=== PATIENT | female | born 1950 | race Two or more races ===

== ENCOUNTER 2018-06-15 11:47 | Emergency (ER) | payer MEDICAID ==
[~2018-06-15] VITALS: Ht 160 cm; Wt 72.6 kg
[~2018-06-15 11:47] MED LIST: ATORVASTATIN CA20 MG ORAL; DULERA 100 MCG/13 GM INH; FLONASE ALLERG9.9 ML NS; LEVOTHYROXINE50 MCG ORAL; LISINOPRIL20 MG ORAL; METFORMIN HCL500 M1 ORAL; METOPROLOL SUCC50 MG ORAL
[2018-06-15 12:00] VITALS: BP 166/53
--- NOTE | 2018-06-15 13:12 | Emergency Room Report ---
History of Present Illness General Chief Complaint: Palpitations Source: Patient, Medical Record Present Illness HPI This patient c/o palpitations for two days. She feels her heart beat and points to her chest. Not necessarily fast but it feels "strong." No sob, no chest pain , no cough, no fever. No leg pain/swelling, no travel. No change in meds. Meds: hctz, atenolol, atorvastatin, metformin, lisinopril, synthroid Allergies: Coded Allergies: CEPHALEXIN (Verified Allergy, Intermediate, rash, 08/27/15) IBUPROFEN (Verified Allergy, Intermediate, edema and stomach upset, ) SULFAMETHOXAZOLE (Verified Allergy, Intermediate, rash , 08/27/15) PENICILLINS (Verified Allergy, Unknown, 08/26/15) SIMVASTATIN (Verified Allergy, Unknown, 08/26/15) TRAMADOL (Verified Allergy, Unknown, 08/26/15) ALBUTEROL (Verified Adverse Reaction, Severe, palpitations, 08/27/15) METOPROLOL (Verified Adverse Reaction, Severe, Palpitations, 08/27/15) MELOXICAM (Verified Adverse Reaction, Intermediate, facial edema, 08/27/15) TRIMETHOPRIM (Verified Adverse Reaction, Intermediate, palpitations, ) AMLODIPINE (Verified Adverse Reaction, Mild, swelling in ankles, 08/27/15) Nursing Documentation-PMH Past Medical History: No History, Except For Hx Cardiac Problems: Yes - Arrhythmia Hx Hypertension: Yes Hx Pacemaker: No Hx Asthma: Yes - Takes inhaler PRN Hx COPD: No Hx Diabetes: Yes - Type II Hx Cancer: No Hx Gastrointestinal Problems: Yes Hx Dialysis: No History Of Psychiatric Problem: No Hx Neurological Problems: No Hx Cerebrovascular Accident: No Hx Seizures: No Review of Systems Constitutional: Reports: no symptoms Eye: Reports: no symptoms ENT: Reports: no symptoms Respiratory: Reports: no symptoms Cardiovascular: Reports: palpitations Gastrointestinal: Reports: no symptoms Genitourinary: Reports: no symptoms Musculoskeletal: Reports: no symptoms Skin: Reports: no symptoms Psychiatric: Reports: no symptoms Neurological: Reports: no symptoms Endocrine: Reports: no symptoms Hematologic/Lymphatic: Reports: no symptoms Allergic: Reports: no symptoms All Other Systems: negative except mentioned in HPI Physical Exam Vital Signs Date Time Temp Pulse Resp B/P (MAP) Pulse Ox O2 Delivery O2 Flow Rate FiO2 06/15/18 11:57 98.6 63 16 132/59 96 Room Air 98.6 Sp02 EP Interpretation: reviewed, normal General Appearance: normal inspection, well appearing, no apparent distress, alert, GCS 15, non-toxic Head: normocephalic, atraumatic Eyes: bilateral eye normal inspection, bilateral eye PERRL, bilateral eye EOMI ENT: normal ENT inspection, hearing grossly normal, normal pharynx, no angioedema, normal voice, moist mucus membranes Neck: normal inspection, full range of motion, supple, no meningismus, no bony tend Respiratory: normal inspection, lungs clear, normal breath sounds, no rhonchi, no respiratory distress, no retraction, no accessory muscle use, no wheezing Cardiovascular #1: normal inspection, regular rate, rhythm, no edema Gastrointestinal: normal inspection, normal bowel sounds, non tender, soft, no mass, non-distended Musculoskeletal: gait/station normal, normal range of motion Neurologic: normal inspection, alert, oriented x3, responsive, motor strength/ tone normal Psychiatric: normal inspection, judgement/insight normal, memory normal Suicide Risk Assessment: Suicidal Ideation: No Had intent to initiate attempt: No Pt's plan for suicide attempt: No Has means to complete attempt: No Skin: normal inspection, normal color, no rash, warm/dry Medical Decision Making Diagnostic Impression: Primary Impression: Palpitations ER Course Pt. states she is having symptoms of palpitation now while on the monitor and she is very steady NSR 70. She does not drink coffee, only tea. No stimulants. Recommend observation only at home. Continue same meds. EKG Diagnostic Results EKG Time: 13:12 Rate: normal Rhythm: NSR ST Segments: no acute changes ASA given to the pt in ED: No Rhythm Strip Diag. Results Rhythm Strip Time: 13:12 EP Interpretation: yes Rate: 68 Rhythm: NSR Last Vital Signs Date Time Temp Pulse Resp B/P (MAP) Pulse Ox O2 Delivery O2 Flow Rate FiO2 06/15/18 12:00 97.9 62 15 166/53 98 Room Air 97.9 Condition: Stable Referrals: [facility],REFERR[facility] (PCP) Patient Instructions: Palpitations Neel New M.D. Jun 15, 2018 13:12
[2018-06-15 13:30] LABS: BASOPHILS % (AUTO) 1.7 % (0.0-2.0); EOSINOPHILS % (AUTO) 2.2 % (0.0-3.0); HEMATOCRIT 36.2 % (37.0-47.0); HEMOGLOBIN 12.1 G/DL (12.0-16.0); LYMPHOCYTES % (AUTO) 24.9 % (20.0-45.0); MEAN CORPUSCULAR VOLUME 85 FL (80-99); MONOCYTES % (AUTO) 5.7 % (1.0-10.0); NEUTROPHILS % (AUTO) 65.5 % (45.0-75.0); PLATELET COUNT 429 K/UL (150-450); RED BLOOD COUNT 4.26 M/UL (4.20-5.40); RED CELL DISTRIBUTION WIDTH 12.6 % (11.6-14.8); WHITE BLOOD COUNT 11.2 K/UL (4.8-10.8)
[2018-06-15 13:33] LABS: APPEARANCE,URINE CLEAR; BILIRUBIN, URINE NEGATIVE (NEGATIVE); COLOR,URINE PALE YELLOW; GLUCOSE, URINE (UA) NEGATIVE (NEGATIVE); KETONES,URINE NEGATIVE (NEGATIVE); LEUKOCYTE ESTERASE ,URINE 1+ (NEGATIVE); NITRITE,URINE NEGATIVE (NEGATIVE); PH,URINE 6.5 (4.5-8.0); PROTEIN,URINE NEGATIVE (NEGATIVE); UROBILINOGEN,URINE NORMAL MG/DL (0.0-1.0)
[2018-06-15 13:47] LABS: ANION GAP 10 mmol/L (5-15); BLOOD UREA NITROGEN 11 mg/dL (7-18); CALCIUM 9.2 MG/DL (8.5-10.1); CARBON DIOXIDE 26 MMOL/L (21-32); CHLORIDE 100 MMOL/L (98-107); CREATININE 0.9 MG/DL (0.55-1.30); POTASSIUM 5.1 MMOL/L (3.5-5.1); SODIUM 136 MMOL/L (136-145)
[2018-06-15 13:50] LABS: ALANINE AMINOTRANSFERASE 28 U/L (12-78); ALBUMIN 3.3 G/DL (3.4-5.0); ALBUMIN/GLOBULIN RATIO 0.8 (1.0-2.7); ALKALINE PHOSPHATASE 78 U/L (46-116); ASPARTATE AMINO TRANSFERASE 27 U/L (15-37); BILIRUBIN,TOTAL 0.4 MG/DL (0.2-1.0)
[2018-06-15 14:02] VITALS: BP 166/53
--- NOTE | 2018-06-15 14:16 | Diagnostic Imaging Report ---
Indication: Pain Technique: XRAY Chest 1v Comparison: None Findings: Heart size and mediastinal contours are within normal limits given technique. There are atherosclerotic calcifications in the aorta. There is no focal consolidation, pneumothorax or pleural effusion. Osseous structures demonstrate no acute abnormality. Impression: No radiographic evidence of acute cardiopulmonary disease.
== END 2018-06-15 14:04 | disposition home or self-care (01) ==
LOC: EMR 12:46
DX: R00.2 Palpitations (principal); I10 Essential (primary) hypertension; J45.909 Unspecified asthma, uncomplicated; E11.9 Type 2 diabetes mellitus without complications; Z88.0 Allergy status to penicillin; Z88.1 Allergy status to other antibiotic agents; Z88.2 Allergy status to sulfonamides; Z88.6 Allergy status to analgesic agent; Z88.8 Allergy status to other drugs, medicaments and biological substances; Z79.84 Long term (current) use of oral hypoglycemic drugs
CPT/HCPCS: 36415; 71045; 80053; 80307; 81001; 84484; 85025; 93005; 99283